=== PATIENT | male | born 1975 | race African-American/Black ===

== ENCOUNTER 2018-07-20 11:28 | Observation (INO) | payer OTHER ==
[2018-07-20] MEDS ORDERED: SODIUM CHLORIDE 0.9% 500 ML 500 ML IV STA (12:16)
[2018-07-20] MEDS ORDERED: SODIUM CHLORIDE 0.9% 1,000 ML IV STA (12:16)
--- NOTE | 2018-07-20 12:25 | ED ---
General Adult HPI - General Chief complaint: Syncope Stated complaint: Syncope Time Seen by Provider: 07/20/18 11:35 Source: patient, RN notes reviewed Mode of arrival: EMS Limitations: no limitations - History of Present Illness Initial comments: This is a 43-year-old male who presents emergency Department after having had a syncopal episode at the gym. Patient states he was doing full body workout and while sitting on a bench doing curls he felt lightheaded and passed out. According to the staff he was out for about 1 minute. Patient did not hurt himself when he passed out. Patient states she didn't eat anything this morning prior to working out. 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 Patient states he also has been only eating one meal a day so he can lose weight. Patient denies any drug use or alcohol use. Patient denies any chest pain difficulty breathing or shortness of breath. Patient denies any palpitations. Patient states he has a very subtle frontal headache. Patient denies any nausea vomiting. Patient denies any fever chills. Patient denies any injury or trauma. Patient denies any numbness or focal weakness. Denies any history of fever chills. Currently patient has no symptoms aside from a very slight headache. - Related Data Home Medications Medication Instructions Recorded Confirmed Ibuprofen [Motrin Ib] 800 mg PO Q6H PRN 07/20/18 07/20/18 Allergies Allergy/AdvReac Type Severity Reaction Status Date / Time codeine Allergy Unknown Verified 07/20/18 11:54 Penicillins Allergy Rash/Hives Verified 07/20/18 11:54 Review of Systems ROS Statement: Those systems with pertinent positive or pertinent negative responses have been documented in the HPI. ROS Other: All systems not noted in ROS Statement are negative. Past Medical History Past Medical History: No Reported History History of Any Multi-Drug Resistant Organisms: None Reported Past Surgical History: Orthopedic Surgery Additional Past Surgical History / Comment(s): Rt wrist Past Psychological History: No Psychological Hx Reported Smoking Status: Never smoker Past Alcohol Use History: None Reported Past Drug Use History: None Reported General Exam - General Exam Comments Initial Comments: GENERAL: Patient is well-developed and well-nourished. Patient is nontoxic and well- hydrated and is in no acute distress. ENT: Neck is soft and supple. No significant lymphadenopathy is noted. Oropharynx is clear. Moist mucous membranes. Neck has full range of motion without eliciting any pain. EYES: The sclera were anicteric and conjunctiva were pink and moist. Extraocular movements were intact and pupils were equal round and reactive to light. Eyelids were unremarkable. PULMONARY: Unlabored respirations. Good breath sounds bilaterally. No audible rales rhonchi or wheezing was noted. CARDIOVASCULAR: There is a regular rate and rhythm without any murmurs gallops or rubs. ABDOMEN: Soft and nontender with normal bowel sounds. No palpable organomegaly was noted. There is no palpable pulsatile mass. SKIN: Skin is clear with no lesions or rashes and otherwise unremarkable. NEUROLOGIC: Patient is alert and oriented x3. Cranial nerves II through XII are grossly intact. Motor and sensory are also intact. Normal speech, volume and content. Symmetrical smile. MUSCULOSKELETAL: Normal extremities with adequate strength and full range of motion. No lower extremity swelling or edema. No calf tenderness. LYMPHATICS: No significant lymphadenopathy is noted PSYCHIATRIC: Normal psychiatric evaluation. Limitations: no limitations Course Vital Signs 07/20/18 07/20/18 07/20/18 11:34 11:36 11:40 Temperature 97.6 F Pulse Rate 56 L Pulse Rate [ Left Sitting Pulse Oximetery ] Pulse Rate [ Left Standing Pulse Oximetery ] Pulse Rate [ Left Supine Pulse Oximetery ] Respiratory 16 Rate Blood Pressure 95/59 95/59 Blood Pressure [Right Arm Sitting] Blood Pressure [Right Arm Standing] Blood Pressure [Right Arm Supine] O2 Sat by Pulse 99 100 100 Oximetry 07/20/18 07/20/18 07/20/18 11:50 12:00 12:10 Temperature Pulse Rate Pulse Rate [ Left Sitting Pulse Oximetery ] Pulse Rate [ Left Standing Pulse Oximetery ] Pulse Rate [ Left Supine Pulse Oximetery ] Respiratory Rate Blood Pressure 106/63 106/63 100/65 Blood Pressure [Right Arm Sitting] Blood Pressure [Right Arm Standing] Blood Pressure [Right Arm Supine] O2 Sat by Pulse 100 100 100 Oximetry 07/20/18 07/20/18 07/20/18 12:20 12:30 12:40 Temperature Pulse Rate Pulse Rate [ Left Sitting Pulse Oximetery ] Pulse Rate [ Left Standing Pulse Oximetery ] Pulse Rate [ Left Supine Pulse Oximetery ] Respiratory Rate Blood Pressure 112/65 112/65 112/65 Blood Pressure [Right Arm Sitting] Blood Pressure [Right Arm Standing] Blood Pressure [Right Arm Supine] O2 Sat by Pulse 100 100 Oximetry 07/20/18 07/20/18 07/20/18 12:50 13:00 13:15 Temperature Pulse Rate 70 Pulse Rate [ Left Sitting Pulse Oximetery ] Pulse Rate [ Left Standing Pulse Oximetery ] Pulse Rate [ Left Supine Pulse Oximetery ] Respiratory 16 Rate Blood Pressure 105/65 105/65 115/69 Blood Pressure [Right Arm Sitting] Blood Pressure [Right Arm Standing] Blood Pressure [Right Arm Supine] O2 Sat by Pulse 100 100 99 Oximetry 07/20/18 13:41 Temperature Pulse Rate Pulse Rate [ 72 Left Sitting Pulse Oximetery ] Pulse Rate [ 77 Left Standing Pulse Oximetery ] Pulse Rate [ 65 Left Supine Pulse Oximetery ] Respiratory Rate Blood Pressure Blood Pressure 126/81 [Right Arm Sitting] Blood Pressure 113/77 [Right Arm Standing] Blood Pressure 112/69 [Right Arm Supine] O2 Sat by Pulse Oximetry Medical Decision Making - Medical Decision Making EKG shows normal sinus rhythm at 69 bpm FL interval 250 QRS is 96 QT interval 426 QTC is 456. Patient has no ST segment elevation or depression or T wave abnormalities are noted. Patient's computed tomography scan of the brain shows no acute abnormality. Chest x-ray showed no acute abnormality. Patient was not orthostatic in the emergency department. Patient's magnesium was mildly elevated and his creatinine was also mildly elevated. I spoke with Dr. Sky wanted to keep the patient 23 hours admitted the patient for 23 hour observation. - Lab Data Result diagrams: 07/20/18 11:40 07/20/18 11:40 Lab Results 07/20/18 07/20/18 07/20/18 Range/Units 11:40 11:40 11:40 WBC 5.7 (3.8-10.6) k/uL RBC 4.91 (4.30-5.90) m/uL Hgb 12.2 L (13.0-17.5) gm/dL Hct 40.7 (39.0-53.0) % MCV 82.8 (80.0-100.0) fL MCH 24.8 L (25.0-35.0) pg MCHC 30.0 L (31.0-37.0) g/dL RDW 12.9 (11.5-15.5) % Plt Count 261 (150-450) k/uL Neutrophils % 58 % Lymphocytes % 32 % Monocytes % 5 % Eosinophils % 3 % Basophils % 1 % Neutrophils # 3.3 (1.3-7.7) k/uL Lymphocytes # 1.8 (1.0-4.8) k/uL Monocytes # 0.3 (0-1.0) k/uL Eosinophils # 0.2 (0-0.7) k/uL Basophils # 0.1 (0-0.2) k/uL PT (9.0-12.0) sec INR (<1.2) APTT (22.0-30.0) sec Sodium 140 (137-145) mmol/L Potassium 4.0 (3.5-5.1) mmol/L Chloride 105 (98-107) mmol/L Carbon Dioxide 22 (22-30) mmol/L Anion Gap 13 mmol/L BUN 14 (9-20) mg/dL Creatinine 1.32 H (0.66-1.25) mg/dL Est GFR (CKD-EPI)AfAm 75 (>60 ml/min/1.73 sqM) Est GFR (CKD-EPI)NonAf 65 (>60 ml/min/1.73 sqM) Glucose 110 H (74-99) mg/dL Calcium 9.4 (8.4-10.2) mg/dL Magnesium 2.9 H (1.6-2.3) mg/dL Total Bilirubin 0.5 (0.2-1.3) mg/dL AST 30 (17-59) U/L ALT 30 (21-72) U/L Alkaline Phosphatase 55 (38-126) U/L Total Creatine Kinase 272 H (55-170) U/L CK-MB (CK-2) 2.1 (0.0-2.4) ng/mL CK-MB (CK-2) Rel Index 0.8 Troponin I <0.012 (0.000-0.034) ng/mL Total Protein 8.0 (6.3-8.2) g/dL Albumin 4.3 (3.5-5.0) g/dL 07/20/18 Range/Units 11:40 WBC (3.8-10.6) k/uL RBC (4.30-5.90) m/uL Hgb (13.0-17.5) gm/dL Hct (39.0-53.0) % MCV (80.0-100.0) fL MCH (25.0-35.0) pg MCHC (31.0-37.0) g/dL RDW (11.5-15.5) % Plt Count (150-450) k/uL Neutrophils % % Lymphocytes % % Monocytes % % Eosinophils % % Basophils % % Neutrophils # (1.3-7.7) k/uL Lymphocytes # (1.0-4.8) k/uL Monocytes # (0-1.0) k/uL Eosinophils # (0-0.7) k/uL Basophils # (0-0.2) k/uL PT 11.2 (9.0-12.0) sec INR 1.1 (<1.2) APTT 19.8 L (22.0-30.0) sec Sodium (137-145) mmol/L Potassium (3.5-5.1) mmol/L Chloride (98-107) mmol/L Carbon Dioxide (22-30) mmol/L Anion Gap mmol/L BUN (9-20) mg/dL Creatinine (0.66-1.25) mg/dL Est GFR (CKD-EPI)AfAm (>60 ml/min/1.73 sqM) Est GFR (CKD-EPI)NonAf (>60 ml/min/1.73 sqM) Glucose (74-99) mg/dL Calcium (8.4-10.2) mg/dL Magnesium (1.6-2.3) mg/dL Total Bilirubin (0.2-1.3) mg/dL AST (17-59) U/L ALT (21-72) U/L Alkaline Phosphatase (38-126) U/L Total Creatine Kinase (55-170) U/L CK-MB (CK-2) (0.0-2.4) ng/mL CK-MB (CK-2) Rel Index Troponin I (0.000-0.034) ng/mL Total Protein (6.3-8.2) g/dL Albumin (3.5-5.0) g/dL Disposition Clinical Impression: Syncope and collapse, Hypermagnesemia, Renal insufficiency Disposition: ADMITTED IP TO THIS HOSP Referrals: Clifford Sky MD [Primary Care Provider] - 1-2 days Time of Disposition: 14:37
--- NOTE | 2018-07-20 12:34 | XR ---
EXAMINATION TYPE: XR chest 2V DATE OF EXAM: 07/20/2018 COMPARISON: NONE HISTORY: Chest pain TECHNIQUE: Frontal and lateral views of the chest are obtained. FINDINGS: There is no focal air space opacity. No evidence for pneumothorax. No pleural effusion. The cardiac silhouette size is within normal limits. The osseous structures are grossly intact. IMPRESSION: 1. No acute cardiopulmonary process.
[2018-07-20 13:23] LABS: Basophils # (A) 0.1 k/uL (0-0.2); Basophils % (A) 1 %; Eosinophils # (A) 0.2 k/uL (0-0.7); Eosinophils % (A) 3 %; HCT 40.7 % (39.0-53.0); HGB 12.2 gm/dL (13.0-17.5); Lymphocytes # (A) 1.8 k/uL (1.0-4.8); Lymphocytes % (A) 32 %; MCH 24.8 pg (25.0-35.0); MCV 82.8 fL (80.0-100.0); Mean Platelet Volume 6.2; Monocytes # (A) 0.3 k/uL (0-1.0); Monocytes % (A) 5 %; Neutrophils # (A) 3.3 k/uL (1.3-7.7); Neutrophils % (A) 58 %; Platelet Count 261 k/uL (150-450); RBC 4.91 m/uL (4.30-5.90); RDW 12.9 % (11.5-15.5); WBC 5.7 k/uL (3.8-10.6)
[2018-07-20 13:36] LABS: Albumin 4.3 g/dL (3.5-5.0); Calcium 9.4 mg/dL (8.4-10.2); Magnesium 2.9 mg/dL (1.6-2.3); Total Bilirubin 0.5 mg/dL (0.2-1.3)
[2018-07-20 13:40] LABS: INR 1.1 (<1.2); Prothrombin Time 11.2 sec (9.0-12.0)
[2018-07-20 13:45] LABS: Partial Thromboplastin Time 19.8 sec (22.0-30.0)
[2018-07-20 14:12] LABS: Creatine Kinase 272 U/L (55-170)
[2018-07-20 14:26] LABS: Creatine Kinase MB 2.1 ng/mL (0.0-2.4); Troponin I <0.012 ng/mL (0.000-0.034)
[2018-07-20] MEDS ORDERED: SODIUM CHLORIDE 0.9% 1,000 ML IV ONE (14:37)
[2018-07-20 15:09] LABS: Basophils % (A) 0 %; Eosinophils # (A) 0.2 k/uL (0-0.7); Eosinophils % (A) 2 %; HCT 36.4 % (39.0-53.0); HGB 11.6 gm/dL (13.0-17.5); Lymphocytes # (A) 1.3 k/uL (1.0-4.8); Lymphocytes % (A) 15 %; MCH 25.7 pg (25.0-35.0); MCHC 31.9 g/dL (31.0-37.0); MCV 80.6 fL (80.0-100.0); Mean Platelet Volume 6.6; Monocytes # (A) 0.3 k/uL (0-1.0); Monocytes % (A) 3 %; Neutrophils # (A) 7.1 k/uL (1.3-7.7); Neutrophils % (A) 79 %; Platelet Count 248 k/uL (150-450); RBC 4.51 m/uL (4.30-5.90); RDW 12.9 % (11.5-15.5)
[2018-07-20 15:18] LABS: Anion Gap 7 mmol/L; Blood Urea Nitrogen 13 mg/dL (9-20); Calcium 8.5 mg/dL (8.4-10.2); Carbon Dioxide 27 mmol/L (22-30); Chloride 105 mmol/L (98-107); Glucose 95 mg/dL (74-99); Magnesium 2.5 mg/dL (1.6-2.3); Potassium 3.8 mmol/L (3.5-5.1); Sodium 139 mmol/L (137-145)
[2018-07-20 16:27] LABS: Appearance,Urine Clear (Clear); Bilirubin,Urine Negative (Negative); Blood,Urine Negative (Negative); Color,Urine Yellow; Glucose,Urine (UA) Negative (Negative); Hyaline Casts,Urine 19 /lpf (0-2); Ketones,Urine Negative (Negative); Leukocyte Esterase,Urine Small (Negative); Mucus,Urine Few /hpf; Nitrite,Urine Negative (Negative); PH, Urine 5.5 (5.0-8.0); Protein,Urine Trace (Negative); RBC,Urine 1 /hpf (0-5); Specific Gravity,Urine 1.013 (1.001-1.035); Squamous Epithelial Cell,Urine 2 /hpf (0-4); Urobilinogen,Urine <2.0 mg/dL (<2.0); WBC,Urine 13 /hpf (0-5)
[2018-07-20 16:52] LABS: Glucose,Whole Blood 107 mg/dL (75-99)
[2018-07-20] MEDS: INSULIN ASPART 100 UNIT/ML 1 ML 10 ML VIAL SQ SCH (16:59)
[2018-07-20] MEDS ORDERED: INSULIN ASPART 100 UNIT/ML 1 ML 10 ML VIAL SQ SCH ×2 (17:30)
--- NOTE | 2018-07-20 18:18 | P.HPIM ---
History of Present Illness H&P Date: 07/20/18 Chief Complaint: Syncopal episode at the gym after he had full exercise without eating morni This is an admission history and physical dictated by Dr. Sky. Chief complaint: Syncopal episode at the gym after he had full exercise was feeling drowsy while he was sitting on the bench doing crackles, he felt lightheaded and passed out. Estimation of time 1 minute, he did not hurt himself. History of present illness: 43 years old -[place] male , he was exercising in the gym after workout he was sitting on the bench doing curls, he felt lightheaded and he passed out, patient did not eat breakfast in the morning prior to the workout and he trying to lose weight. And he did not eat anything prior to this event he was only eating 1 meal a day also to lose weight. Patient denied any alcohol intake or chest pain or shortness of breath no palpitation but he had frontal headache no nausea or vomiting and no fever or chills no injury or trauma and denied any numbness or focal weakness and no fever or chills only symptoms at the time of arrival to the ER slight headache. His list of medication ibuprofen 800 mg every 6 hour when necessary. ALLERGY to codeine and penicillin. Review of system: Patient was not seen in my office for more than a year. However we do see his father who is a diabetic. Psychiatry was negative, Neurology, no headache currently on examination no blurred vision and able to stand up and ambulate. Cardiovascular no palpitation or chest pain. Chest no cough or expectoration or recent history of upper respiratory tract infection. GI and abdomen was negative no nausea no vomiting no diarrhea no hematochezia or hematemesis or melena. no dysuria or hematuria. Musculoskeletal negative. History of aches and pain using Motrin. Habits: No smoking nor drinking no illicit drug. No surgical intervention Physical exam: Vital sign stable however on admission his blood pressure was in the 90s probable secondary to dehydration. With normal morning breakfast and no fluid intake prior to the exercise with the extensive program. HEENT: The head was normocephalic and atraumatic, pupil was equal reactive, oropharynx natural teeth, uvula midline. Neck : Supple no JVD no bruits no lymphadenopathy. Chest is clear to auscultation and percussion. Heart: Regular sinus rhythm. No murmurs no gallops. Abdomen is soft positive bowel sounds no organ enlargement. Extremities no edema. Pulses and moving normally. Neurological examination: No weakness in the upper or lower extremities, moving 4 extremities, cranial nerve is intact 2-12, no neuro deficit and no lateralizing sign. Investigation: #1 EKG normal sinus rhythm with the rate 69 bpm. No acute abnormalities #2 computed tomography scan of the brain in the ER as well negative #3 chest x-ray no acute abnormalities. Laboratory: White count on admission 5.7 hemoglobin 12.2, MCV 82.8, platelet 261. PT and INR was normal, PTT 19.8 with the normal range 22-30. Initial chemistry indicating that sodium 140 potassium 4 chloride 105 carbon dioxide 22 BUN of 14 creatinine 1.3 to with the estimated glomerular filtration rate for -[place] is 75 his calcium was 9.4 magnesium 2.9 blood sugar was initially 107 Referring and blood sugar 110. Liver function test is normal, troponin 1 less than 0.012, total protein and albumin is normal urine analysis in significant for his acute symptoms with the syncope. Patient drink Gatorade in the gym after he had the syncopal episode the give it to him to hydrate him. Which probably associated with elevated magnesium 2.9 on admission, his CPK was 272 minimal elevation associated with the intense exercise indicating that his estimated glomerular filtration rate with limited hydration back to normal more than 94 -[place] male. Also his white count went up to 9 hemoglobin with the hydration went down to 11.6. Assessment: On presentation to the ER first vital sign recorded that his blood pressure was 95/59 on the 1134 and repeated was 95/59 with the started the IV fluid her blood pressures start picking up to 106/63 and repeatedly the same 106/63. His temperature on admission was 97.6 and his heart rate was 56 bpm and regular. Impression: #1 intense for workup of exercise, without breakfast fluid as well as patient eat 1 meal a day, and nobody checked his POC blood sugar to indicate probably hypoglycemia. #2 hypotension associated with dehydration with the full workout. Which she recovered after the started the IV fluid. #3 elevated magnesium, probably secondary to have GEDRADE drink after these exercise. #4 dehydration resulted in mild elevation in the BUN and creatinine and expected to be resolved by tomorrow. Plan: Ambulation with litigation assistant. #2 no need for anticoagulation or heparin, patient can be moved his upper and lower extremities. #3 continue IV hydration. #4 recheck laboratory in a.m. including magnesium and BMP and a CBC. Patient probably will go home if stable tomorrow. Past Medical History Past Medical History: No Reported History History of Any Multi-Drug Resistant Organisms: None Reported Past Surgical History: Orthopedic Surgery Additional Past Surgical History / Comment(s): Rt wrist cystectomy Past Anesthesia/Blood Transfusion Reactions: No Reported Reaction Smoking Status: Never smoker - Past Family History Father Family Medical History: Diabetes Mellitus Mother Family Medical History: Diabetes Mellitus, Hearing Disorder / Deafness, Hyperlipidemia Additional Family Medical History / Comment(s): Mother has a pacemaker. Medications and Allergies Home Medications Medication Instructions Recorded Confirmed Type Ibuprofen [Motrin Ib] 800 mg PO Q6H PRN 07/20/18 07/20/18 History Allergies Allergy/AdvReac Type Severity Reaction Status Date / Time codeine Allergy Unknown Verified 07/20/18 11:54 Penicillins Allergy Rash/Hives Verified 07/20/18 11:54 Physical Exam Vitals: Vital Signs Temp Pulse Pulse Pulse Pulse Resp BP 07/20/18 16:24 72 70 65 15 07/20/18 15:17 99.7 F H 70 15 07/20/18 14:57 98.2 F 68 18 117/68 07/20/18 14:38 92 18 111/73 07/20/18 13:41 72 77 65 07/20/18 13:15 70 16 115/69 07/20/18 13:00 105/65 07/20/18 12:50 105/65 07/20/18 12:40 112/65 07/20/18 12:30 112/65 07/20/18 12:20 112/65 07/20/18 12:10 100/65 07/20/18 12:00 106/63 07/20/18 11:50 106/63 07/20/18 11:40 95/59 07/20/18 11:36 07/20/18 11:34 97.6 F 56 L 16 95/59 BP BP BP Pulse Ox 07/20/18 16:24 07/20/18 15:17 128/77 100 07/20/18 14:57 100 07/20/18 14:38 100 07/20/18 13:41 126/81 113/77 112/69 07/20/18 13:15 99 07/20/18 13:00 100 07/20/18 12:50 100 07/20/18 12:40 100 07/20/18 12:30 07/20/18 12:20 100 07/20/18 12:10 100 07/20/18 12:00 100 07/20/18 11:50 100 07/20/18 11:40 100 07/20/18 11:36 100 07/20/18 11:34 99 Intake and Output 07/20/18 07/20/18 07/20/18 06:59 14:59 22:59 Other: Weight 79.379 kg 79.379 kg Results CBC & Chem 7: 07/20/18 14:50 07/20/18 14:50 Labs: Abnormal Lab Results - Last 24 Hours (Table) 07/20/18 07/20/18 07/20/18 Range/Units 11:40 11:40 11:40 Hgb 12.2 L (13.0-17.5) gm/dL Hct (39.0-53.0) % MCH 24.8 L (25.0-35.0) pg MCHC 30.0 L (31.0-37.0) g/dL APTT (22.0-30.0) sec Creatinine 1.32 H (0.66-1.25) mg/dL Glucose 110 H (74-99) mg/dL POC Glucose (mg/dL) (75-99) mg/dL Magnesium 2.9 H (1.6-2.3) mg/dL Total Creatine Kinase 272 H (55-170) U/L Urine Protein (Negative) Ur Leukocyte Esterase (Negative) Urine WBC (0-5) /hpf Hyaline Casts (0-2) /lpf Urine Mucus (None) /hpf 07/20/18 07/20/18 07/20/18 Range/Units 11:40 14:50 14:50 Hgb 11.6 L (13.0-17.5) gm/dL Hct 36.4 L (39.0-53.0) % MCH (25.0-35.0) pg MCHC (31.0-37.0) g/dL APTT 19.8 L (22.0-30.0) sec Creatinine (0.66-1.25) mg/dL Glucose (74-99) mg/dL POC Glucose (mg/dL) (75-99) mg/dL Magnesium 2.5 H (1.6-2.3) mg/dL Total Creatine Kinase (55-170) U/L Urine Protein (Negative) Ur Leukocyte Esterase (Negative) Urine WBC (0-5) /hpf Hyaline Casts (0-2) /lpf Urine Mucus (None) /hpf 07/20/18 07/20/18 Range/Units 15:22 16:49 Hgb (13.0-17.5) gm/dL Hct (39.0-53.0) % MCH (25.0-35.0) pg MCHC (31.0-37.0) g/dL APTT (22.0-30.0) sec Creatinine (0.66-1.25) mg/dL Glucose (74-99) mg/dL POC Glucose (mg/dL) 107 H (75-99) mg/dL Magnesium (1.6-2.3) mg/dL Total Creatine Kinase (55-170) U/L Urine Protein Trace H (Negative) Ur Leukocyte Esterase Small H (Negative) Urine WBC 13 H (0-5) /hpf Hyaline Casts 19 H (0-2) /lpf Urine Mucus Few H (None) /hpf Thrombosis Risk Factor Assmnt - Choose All That Apply Any of the Below Risk Factors Present?: Yes Each Factor Represents 1 point: Age 41-60 years, Obesity (BMI >25) Other Risk Factors: No Other congenital or acquired thrombophilia - If yes, enter type in comment: No Thrombosis Risk Factor Assessment Total Risk Factor Score: 2 Thrombosis Risk Factor Assessment Level: Low Risk
[2018-07-20 19:54] LABS: Hemoglobin A1C 5.9 % (4.0-6.0)
[2018-07-21 00:16] VITALS: PULSE 67
[2018-07-21 07:15] LABS: Basophils % (A) 1 %; Eosinophils # (A) 0.3 k/uL (0-0.7); Eosinophils % (A) 6 %; HCT 36.7 % (39.0-53.0); HGB 11.2 gm/dL (13.0-17.5); Lymphocytes # (A) 1.6 k/uL (1.0-4.8); Lymphocytes % (A) 30 %; MCH 25.5 pg (25.0-35.0); MCHC 30.5 g/dL (31.0-37.0); MCV 83.4 fL (80.0-100.0); Mean Platelet Volume 6.7; Monocytes # (A) 0.3 k/uL (0-1.0); Monocytes % (A) 6 %; Neutrophils # (A) 3.1 k/uL (1.3-7.7); Neutrophils % (A) 56 %; Platelet Count 228 k/uL (150-450); RDW 12.9 % (11.5-15.5); WBC 5.5 k/uL (3.8-10.6)
[2018-07-21 07:26] LABS: ALT 45 U/L (21-72); AST 45 U/L (17-59); Albumin 3.3 g/dL (3.5-5.0); Alkaline Phosphatase 50 U/L (38-126); Anion Gap 7 mmol/L; Blood Urea Nitrogen 11 mg/dL (9-20); Calcium 8.7 mg/dL (8.4-10.2); Carbon Dioxide 25 mmol/L (22-30); Chloride 109 mmol/L (98-107); Glucose 104 mg/dL (74-99); Magnesium 2.1 mg/dL (1.6-2.3); Sodium 141 mmol/L (137-145); Total Bilirubin 0.3 mg/dL (0.2-1.3); Total Protein 6.5 g/dL (6.3-8.2)
[2018-07-21 09:04] VITALS: BP 148/84; RESP 16; TEMP 98
--- NOTE | 2018-07-21 19:51 | DS ---
DISCHARGE SUMMARY NEW DATA: Height is 5 feet 4 inches, weight 79.379 kg, BSA 1.85 m2, BMI is 30 kg/m2. HIS ALLERGY IS CODEINE AND PENICILLIN. FINAL DIAGNOSES: 1. Syncopal episode post vigorous exercise program in the gym. 2. Underlying mild dehydration with abnormal electrolytes, resolved on discharge with hydration. 3. Hypermagnesemia on admission through the ER secondary to good rate, some supplemental drink that he received in the gym after found that he had a syncopal episode which resolved as well. 4. He has mild anemia, etiology unknown at this time. 5. The patient was not seen in the office for the last 2 years or more and advised to make appointment and be established again. 6. Renal function is stable with a estimated glomerular filtration rate more than 90. His creatinine on discharge 1.01 with the BUN was 11. 7. Which is resolved, all the finding on the admission. His magnesium on discharge 2.1. Normal. The patient admitted to the hospital by the ER on observation status because of his electrolyte imbalance and syncopal episode after a severe exercise program added to not eating or drinking prior to the exercise or no food for trying to lose weight. HOSPITAL COURSE: Patient admitted to the hospital, hydrated, ambulated and he was able to walk and no need for anticoagulant or DVT prophylaxis as the patient is healthy and able to walk and ambulate. The patient in the morning had laboratory indicating that his renal function is excellent with more than 90. Estimated glomerular filtration rate is creatinine 1.01 and his BUN is 11. His electrolytes all within normal limits. His hemoglobin A1c 5.9 with the estimated average blood sugar 123. His magnesium 2.1, which is corrected. His bilirubin 0.3, AST 45, ALT 45, and alkaline phosphatase 50, total protein 6.5. He had albumin 3.3 with the hydration, it which was on admission 4.3 with the white count stayed normal 5.5 with the hemoglobin 11.2, associated with a minimal drop 1 g due to the hydration with the IV fluid. PHYSICAL EXAMINATION: The patient's stable general condition to be discharged home today. On discharge is vital signs stable. Temperature 98 and pulse 67 beats per minute, regular, and respiratory rate 16, blood pressure 148/84, and his saturation 100% to 97%. On examination, the patient is conscious, alert, oriented. He was ambulating. He wants to go home. HEENT was negative and neck was supple. Chest was clear to auscultation and percussion. Heart was regular sinus rhythm and the abdomen was soft. Positive bowel sounds. EXTREMITIES: No edema and positive pulses. Neuro examination grossly intact with no lateralizing signs. No tremor. No cranial nerves abnormality or deficit. His prior on today July 21 and the day of discharge, his blood pressure was 112/64 earlier. However, subsequently as he is excited to go home, blood pressure went up to 148/84. PLAN: Patient advised to call the office for appointment and reestablishment as he was not seen in the office for more than 2 years. MMODL / IJN: [id number] /
== END 2018-07-21 12:34 | disposition home or self-care (01) ==
LOC: EC 11:28 → 4SSUR 14:38
PROVIDERS: ADMIT Internal Medicine; ATTEND Internal Medicine
DX: R55 Syncope and collapse (principal); E86.0 Dehydration; E87.8 Other disorders of electrolyte and fluid balance, not elsewhere classified; E83.41 Hypermagnesemia; D64.9 Anemia, unspecified; N28.9 Disorder of kidney and ureter, unspecified; Z88.0 Allergy status to penicillin; Z88.5 Allergy status to narcotic agent; Z83.3 Family history of diabetes mellitus; R74.8 Abnormal levels of other serum enzymes; I95.9 Hypotension, unspecified; Z82.49 Family history of ischemic heart disease and other diseases of the circulatory system; Z83.52 Family history of ear disorders; E66.9 Obesity, unspecified; Z68.30 Body mass index [BMI] 30.0-30.9, adult
CPT/HCPCS: 96361 ×3; 96360; 99285; 36415; 94760; 93005; 80053 ×2; 80048; 82550; 82553; 83735 ×2; 84484; 85025 ×2; 85610; 85730; 81001; 83036; 71046; G0378 ×2

== ENCOUNTER → 2023-09-25 | Outpatient (CLI) | payer OTHER ==
--- NOTE | 2023-09-25 14:53 | XR ---
EXAMINATION TYPE: XR lumbar spine 2 or 3V DATE OF EXAM: 09/25/2023 2:43 PM CLINICAL INDICATION:Male, 48 years old with history of S33.5XXA,S93.401A,S93.601A; [facility] COMPARISON: None TECHNIQUE: XR lumbar spine 2 or 3V - Frontal, lateral and coned in L5-S1 lateral views of the spine. FINDINGS: No evidence of any acute osseous pathology. No evidence of loss of vertebral body height i s seen. There is normal alignment of the lumbar vertebral bodies. Mild scattered disc space narrowing . Multilevel marginal osteophyte formation throughout the visualized spine. There is facet joint arth ropathy throughout the spine. Scattered at least mild neural foraminal stenosis. IMPRESSION: 1. No acute fracture. 2. Mild multilevel disc degeneration.
--- NOTE | 2023-09-25 14:57 | XR ---
EXAMINATION TYPE: XR foot complete RT, XR ankle complete RT DATE OF EXAM: 09/25/2023 2:43 PM CLINICAL INDICATION:Male, 48 years old with history of S33.5XXA,S93.401A,S93.601A; [facility] COMPARISON: None TECHNIQUE: XR foot complete RT, XR ankle complete RT examined in the AP, oblique, and lateral project ions. FINDINGS: No evidence of any acute osseous pathology. No evidence of soft tissue swelling. Joints are preserve d. Incidental note is made of symphalangism of the fifth distal interphalangeal joint. Calcaneal Achi lles enthesophyte formation. IMPRESSION: No evidence of acute fracture.
== END | disposition home or self-care (01) ==
LOC: RADXRMAIN 14:18
PROVIDERS: ATTEND Emergency Medicine
DX: M51.36 Other intervertebral disc degeneration, lumbar region (principal); S93.401A Sprain of unspecified ligament of right ankle, initial encounter; S93.601A Unspecified sprain of right foot, initial encounter
CPT/HCPCS: 72100